=== PATIENT | male | born 1940 | race Caucasian/White ===

== ENCOUNTER 2021-11-19 10:23 | Emergency (ER) | payer OTHER ==
[~2021-11-19] VITALS: Ht 177.8 cm; Wt 81.6 kg
[~2021-11-19 10:23] MED LIST: AMLO5TAB4 PO; ATEN50TA PO; LISI40TA13 PO; RIVA10TA PO; SIMV10TA97 PO; TAMS0.4C96 PO
[2021-11-19 10:37] VITALS: BP_SYST 160
--- NOTE | 2021-11-19 10:39 | NUR ---
Patient to ER bed 3 to gown for evaluation. Side rails up.
--- NOTE | 2021-11-19 10:42 | NUR ---
PATIENT REFUSED EKG. PATIENT STATED HE HAD BROUGHT HIS OWN PAPERWORK FROM [employer].
[2021-11-19] MEDS ORDERED: METOCLOPRAMIDE HCL 10 MG/2 ML VIAL IVP ONE (10:45)
[2021-11-19] MEDS ORDERED: MECLIZINE HCL 25 MG TABLET (ANITVERT) PO ONE (10:45)
[2021-11-19 11:09] LABS: BASOPHILS # (AUTO) 0.1 K/uL (0.0-0.2); BASOPHILS % (AUTO) 0.8 % (0.0-2.0); EOSINOPHILS # (AUTO) 0.2 K/uL (0.0-0.4); EOSINOPHILS % (AUTO) 2.3 % (0.0-4.0); HEMATOCRIT 40.8 % (36-54); LYMPHOCYTES # (AUTO) 2.5 K/uL (1.0-5.5); LYMPHOCYTES % (AUTO) 29.6 % (20.5-51.5); MEAN CORPUSCULAR VOLUME 90 fL (79.0-98.0); MONOCYTES # (AUTO) 0.7 K/uL (0.0-1.0); MONOCYTES % (AUTO) 7.9 % (1.7-9.3); NEUTROPHILS % (AUTO) 59.4 % (40.0-70.0); PLATELET COUNT (AUTO) 199 K/uL (130-430); RED BLOOD CELL COUNT(AUTO) 4.53 MIL/uL (4.2-6.2); RED CELL DISTRIBUTION WIDTH 13.8 % (9.0-15.0); WHITE BLOOD COUNT (AUTO) 8.4 K/uL (4.8-10.8)
[2021-11-19 11:19] LABS: ANION GAP 8 (5-15); CALCIUM 9.5 mg/dL (8.4-11.0); CHLORIDE 103 mmol/L (98-107); CREATININE 0.96 mg/dL (0.55-1.30); GLUCOSE 118 mg/dL (70-99); POTASSIUM 3.9 mmol/L (3.5-5.1); SODIUM SERUM 139 mmol/L (136-145); UREA NITROGEN, BLOOD 13 mg/dL (8-21)
[2021-11-19 11:27] LABS: ALANINE AMINOTRANSFERASE 22 U/L (12-78); ALBUMIN 3.4 g/dL (3.4-4.8); ASPARTATE AMINOTRANSFERASE 19 U/L (10-37); TOTAL BILIRUBIN 0.5 mg/dL (0.0-1.0)
[2021-11-19] MEDS ORDERED: MECL-261 PO (12:20)
[2021-11-19 12:57] VITALS: BP_SYST 133
--- NOTE | 2021-11-19 13:09 | NUR ---
ALL RESULT BACK EDP REASSESS PATIENT AND D/C HOME WITH WITH INSTRUCTION.
--- NOTE | 2021-11-19 13:13 | NUR ---
Patient given written and verbal discharge instructions and verbalizes understanding. ER MD discussed with patient the results and treatment provided. Patient in stable condition. ID arm band removed. IV catheter removed intact and dressing applied, no active bleeding. Rx of ANTIVERT given. Patient educated on pain management and to follow up with PMD. Pain Scale . Opportunity for questions provided and answered. Medication side effect fact sheet provided. PATIENT LEFT ER WITH WITH IN STABLE CONDITION.
== END 2021-11-19 13:13 | disposition home or self-care (01) ==
LOC: SED 10:23
DX: R42 Dizziness and giddiness (principal); R51.9 Headache, unspecified; R11.0 Nausea; Z79.899 Other long term (current) drug therapy
CPT/HCPCS: 99285; 96374; 70450; 71045; 80053; 85025; 84484; 36415; 76376; J8597; J2765

== ENCOUNTER 2022-02-09 12:48 | Emergency (ER) | payer OTHER ==
[~2022-02-09] VITALS: Ht 177.8 cm; Wt 81.6 kg
[~2022-02-09 12:48] MED LIST changes: +MECL-261 PO
[2022-02-09 14:23] VITALS: BP_SYST 122
--- NOTE | 2022-02-09 15:31 | NUR ---
Patient to [facility] for evaluation.
--- NOTE | 2022-02-09 15:35 | NUR ---
Patient brought in complaining of shortness of breath and cough. Mild shortness of breath. No acute distress noted. Patient able to speak full sentences. Denies any pain
--- NOTE | 2022-02-09 15:40 | NUR ---
PATIENT RECEIVING BREATHING TX.
[2022-02-09] MEDS: IPRATROPIUM BROM 0.5 MG/2.5 ML VIAL.NEB (ATROVENT) INH ONE (15:48)
[2022-02-09] MEDS: ALBUTEROL SULFATE 0.083% 2.5 MG/3 ML VIAL.NEB INH ONE (15:49)
[2022-02-09] MEDS: predniSONE 20 MG TABLET PO ONE (15:55)
[2022-02-09] MEDS: guaiFENesin/DEXTROMETHORPHAN 10 ML UDC PO ONE (15:55)
--- NOTE | 2022-02-09 15:55 | NUR ---
MEDICATED PER MD ORDERS.
[2022-02-09] MEDS ORDERED: ALBMDI INH (17:57)
[2022-02-09] MEDS ORDERED: GUAI5SYR PO (17:58)
[2022-02-09 18:04] VITALS: BP_SYST 132
--- NOTE | 2022-02-09 18:04 | NUR ---
Patient given written and verbal discharge instructions and verbalizes understanding. ER MD discussed with patient the results and treatment provided. Patient in stable condition. ID arm band removed. Rx of VENTOLIN AD ROBITUSSIN DM SUGAR FREE given. Patient educated on pain management and to follow up with PMD. Pain Scale 0/10 Opportunity for questions provided and answered. Medication side effect fact sheet provided.
== END 2022-02-09 18:04 | disposition home or self-care (01) ==
LOC: SED 12:48
DX: J44.1 Chronic obstructive pulmonary disease with (acute) exacerbation (principal); J33.9 Nasal polyp, unspecified; R05.9 Cough, unspecified; R06.02 Shortness of breath; Z79.899 Other long term (current) drug therapy; Z20.822 Contact with and (suspected) exposure to COVID-19
CPT/HCPCS: 36415; 71045; 94640; 99284; 87804 ×2; 87426; J7512; J7613

== ENCOUNTER 2023-01-13 09:39 | Emergency (ER) | payer OTHER ==
[~2023-01-13] VITALS: Ht 167.6 cm; Wt 68.0 kg
[~2023-01-13 09:39] MED LIST changes: +ALBMDI INH; +GUAI5SYR PO
[2023-01-13 09:54] VITALS: BP_SYST 147; PULSE 62; RESP 22; TEMP 98.3; O2SAT 98
[2023-01-13 10:57] LABS: BASOPHILS # (AUTO) 0.1 K/uL (0.0-0.2); BASOPHILS % (AUTO) 1.2 % (0.0-2.0); EOSINOPHILS # (AUTO) 0.1 K/uL (0.0-0.4); HEMATOCRIT 40.9 % (36-54); HEMOGLOBIN 13.3 g/dL (14.0-18.0); LYMPHOCYTES # (AUTO) 1.9 K/uL (1.0-5.5); LYMPHOCYTES % (AUTO) 29.4 % (20.5-51.5); MEAN CORPUSCULAR HEMOGLOBIN 30 pg (27-31); MEAN CORPUSCULAR HGB CONC 33 % (32-36); MEAN CORPUSCULAR VOLUME 92 fL (79.0-98.0); MONOCYTES # (AUTO) 0.7 K/uL (0.0-1.0); NEUTROPHILS # (AUTO) 3.7 K/uL (1.8-7.7); NEUTROPHILS % (AUTO) 57.4 % (40.0-70.0); PLATELET COUNT (AUTO) 212 K/uL (130-430); RED BLOOD CELL COUNT(AUTO) 4.43 MIL/uL (4.2-6.2); RED CELL DISTRIBUTION WIDTH 14.5 % (9.0-15.0); WHITE BLOOD COUNT (AUTO) 6.5 K/uL (4.8-10.8)
[2023-01-13 11:09] LABS: ANION GAP 7 (5-15); CALCIUM 9.7 mg/dL (8.4-11.0); CARBON DIOXIDE 28 mmol/L (23-29); CHLORIDE 101 mmol/L (98-107); CREATININE 1.02 mg/dL (0.55-1.30); GLUCOSE 117 mg/dL (74-106); POTASSIUM 3.9 mmol/L (3.5-5.1); SODIUM SERUM 136 mmol/L (136-145); UREA NITROGEN, BLOOD 19 mg/dL (8-21)
[2023-01-13 11:18] LABS: ALANINE AMINOTRANSFERASE 28 U/L (12-78); ALBUMIN 3.7 g/dL (3.4-4.8); ASPARTATE AMINOTRANSFERASE 22 U/L (10-37); TOTAL BILIRUBIN 0.4 mg/dL (0.0-1.0); TOTAL PROTEIN, SERUM 7.3 g/dL (6.4-8.3)
[2023-01-13 13:02] VITALS: BP_SYST 126; PULSE 54; RESP 18; TEMP 98; O2SAT 96
== END 2023-01-13 13:01 | disposition home or self-care (01) ==
LOC: SED 09:39
DX: R51.9 Headache, unspecified (principal); R42 Dizziness and giddiness; Z79.899 Other long term (current) drug therapy
CPT/HCPCS: 36415; 70450-TC; 71045; 76376; 80053; 84484; 85025; 93005; 99285

== ENCOUNTER 2023-08-31 09:38 | Emergency (ER) | payer OTHER ==
[~2023-08-31] VITALS: Ht 177.8 cm; Wt 80.3 kg
[2023-08-31 10:10] VITALS: BP_SYST 141; PULSE 85; RESP 16; TEMP 97.5; O2SAT 97
[2023-08-31 10:57] LABS: BASOPHILS % (AUTO) 0.4 % (0.0-2.0); EOSINOPHILS % (AUTO) 0.2 % (0.0-4.0); HEMATOCRIT 39.7 % (36-54); HEMOGLOBIN 13.3 g/dL (14.0-18.0); LYMPHOCYTES # (AUTO) 1.6 K/uL (1.0-5.5); LYMPHOCYTES % (AUTO) 12.8 % (20.5-51.5); MEAN CORPUSCULAR HEMOGLOBIN 31 pg (27-31); MEAN CORPUSCULAR HGB CONC 34 % (32-36); MEAN CORPUSCULAR VOLUME 91 fL (79.0-98.0); MONOCYTES # (AUTO) 1.5 K/uL (0.0-1.0); MONOCYTES % (AUTO) 12.4 % (1.7-9.3); NEUTROPHILS # (AUTO) 9.2 K/uL (1.8-7.7); NEUTROPHILS % (AUTO) 74.2 % (40.0-70.0); PLATELET COUNT (AUTO) 219 K/uL (130-430); RED BLOOD CELL COUNT(AUTO) 4.38 MIL/uL (4.2-6.2); WHITE BLOOD COUNT (AUTO) 12.3 K/uL (4.8-10.8)
[2023-08-31 11:23] LABS: ANION GAP 7 (5-15); CALCIUM 9.2 mg/dL (8.4-11.0); CARBON DIOXIDE 28 mmol/L (23-29); CHLORIDE 105 mmol/L (98-107); CREATININE 1.29 mg/dL (0.55-1.30); GLUCOSE 135 mg/dL (74-106); POTASSIUM 4.2 mmol/L (3.5-5.1); SODIUM SERUM 140 mmol/L (136-145); UREA NITROGEN, BLOOD 21 mg/dL (8-21)
[2023-08-31] MEDS: ACETAMINOPHEN 500 MG TABLET PO ONE (13:00)
[2023-08-31 13:10] VITALS: BP_SYST 141; PULSE 85; RESP 16; TEMP 97.5; O2SAT 97
== END 2023-08-31 13:05 | disposition home or self-care (01) ==
LOC: SED 09:38
DX: S92.254A Nondisplaced fracture of navicular [scaphoid] of right foot, initial encounter for closed fracture (principal); S92.154A Nondisplaced avulsion fracture (chip fracture) of right talus, initial encounter for closed fracture; R55 Syncope and collapse; E11.9 Type 2 diabetes mellitus without complications; I10 Essential (primary) hypertension; Z79.899 Other long term (current) drug therapy; Z79.2 Long term (current) use of antibiotics; W18.39XA Other fall on same level, initial encounter; Y93.89 Activity, other specified; Y92.89 Other specified places as the place of occurrence of the external cause; Y99.8 Other external cause status
CPT/HCPCS: 36415; 73502; 80048; 84484; 85025; 93005; 99285